=== PATIENT | male | born 1980 | race Caucasian/White ===

== ENCOUNTER 2022-01-19 07:08 | Emergency (ER) | payer OTHER ==
[~2022-01-19] VITALS: Ht 180.3 cm; Wt 90.7 kg
[2022-01-19 08:52] VITALS: BP 135/74
== END 2022-01-19 08:45 | disposition home or self-care (01) ==
LOC: EDH 07:08
DX: S20.212A Contusion of left front wall of thorax, initial encounter (principal); F20.9 Schizophrenia, unspecified; F17.210 Nicotine dependence, cigarettes, uncomplicated; X58.XXXA Exposure to other specified factors, initial encounter; Y93.89 Activity, other specified; Y92.89 Other specified places as the place of occurrence of the external cause; Y99.8 Other external cause status
CPT/HCPCS: 71046; 93005